=== PATIENT | female | born 1965 ===

== ENCOUNTER 2023-02-01 19:23 | Emergency (ER) | payer SELFPAY ==
[2023-02-01] MEDS ORDERED: cefTRIAXone 1 GM Vial IM ONE (19:43)
[2023-02-01] MEDS ORDERED: Ketorolac 30 MG/ML SDV IM ONE (19:43)
== END 2023-02-01 20:07 | disposition home or self-care (01) ==
LOC: DL.ED 19:23
DX: J01.00 Acute maxillary sinusitis, unspecified (principal)
CPT/HCPCS: 96372; 99283; J0696; J1885